=== PATIENT | female | born 1990 ===

== ENCOUNTER 2016-10-03 17:03 | Emergency (ER) | payer OTHER ==
[2016-10-03] MEDS ORDERED: Sodium Chloride 0.9% 1000 ML 1,000 ML IV STA (17:31)
[2016-10-03] MEDS ORDERED: Sodium Chloride 0.9% 1000 ML 1,000 ML ONE (17:38)
--- NOTE | 2016-10-03 17:46 | ERPHSYRPT ---
- History of Present Illness Time Seen by Provider: 10/03/16 17:31 Source: patient Exam Limitations: no limitations Patient Subjective Stated Complaint: PER EMS CALLED FOR PT VOMITING X 5 DAYS STATES SHE NOTICED BRIGHT RED BLOOD IN HER VOMIT X 2 TODAY STATES SHE IS HAVING SOME ALL OVER ABDOMINAL PAIN. STATES HAS HAD DIARRHEA BUT NONE TODAY. Triage Nursing Assessment: PT LETHARGIC WARM AND DRY. DRY MUCUS MEMBRANES NOTED. Physician History: This is a 26-year-old female who states she does not have a local physician arrives with complaint of vomiting for 5 days states she's had some bright red blood in her vomit. She has diffuse abdominal pain. She has had diarrhea several days ago none today she does have a fever. Past medical history includes HIV, inflamed liver. Past surgical history includes tonsillectomy, 1, cholecystectomy, colon biopsy Last menstrual period now. Social history positive for tobacco use Timing/Duration: day(s) (5 days) Severity: moderate Associated Symptoms: nausea, vomiting, abdominal pain, weakness, No shortness of breath, No heartburn, No diaphoresis, No cough, No chills, No chest pain, No fever, No headaches, No loss of appetite, No malaise, No rash, No syncope, No seizure Allergies/Adverse Reactions: acetaminophen [From Lortab] Allergy (Verified 10/03/16 17:07) hydrocodone Allergy (Verified 10/03/16 17:07) Penicillins Allergy (Verified 10/03/16 17:07) Home Medications: No Reportable Medications [No Reported Medications] 10/03/16 [History] Hx Tetanus, Diphtheria Vaccination/Date Given: Yes Hx Influenza Vaccination/Date Given: Yes Hx Pneumococcal Vaccination/Date Given: No Immunizations Up to Date: Yes - Review of Systems Constitutional: Fever, Weakness, No Chills, No Fatigue, No Lethargy, No Malaise , No Night Sweats, No Weight Loss Eyes: No Symptoms, No Discharge, No Eye Pain, No Eye Redness, No Itchy, No Photophobia, No Tearing, No Vision Changes, No Double Vision, No Foreign Body Sensation Ears, Nose, & Throat: No Symptoms, No Ear Pain, No Ear Discharge, No Hearing Changes, No Tinnitus, No Nose Pain, No Nose Congestion, No Nose Discharge, No Sinus Drainage, No Epistaxis, No Mouth Pain, No Mouth Swelling, No Loose Teeth, No Throat Pain, No Throat Swelling, No Hoarse, No Painful Swallowing, No Snoring , No Stridor Respiratory: No Cough, No Dyspnea Cardiac: No Chest Pain, No Edema, No Palpitations, No Syncope, No Orthopnea, No PND Abdominal/Gastrointestinal: Abdominal Pain, Nausea, Vomiting, Diarrhea, Hematemesis, No Constipation, No Hematochezia, No Melena, No Dysphagia, No Appetite Changes Genitourinary Symptoms: No Dysuria Musculoskeletal: No Back Pain, No Neck Pain Skin: No Rash Neurological: No Dizziness, No Focal Weakness, No Sensory Changes Psychological: No Symptoms Endocrine: No Symptoms All Other Systems: Reviewed and Negative - Past Medical History Other Medical History: HIV,INFLAMED LIVER - Past Surgical History Past Surgical History: Yes Other Surgical History: TONSILS, X 2 GALLBLADDER COLON BIOPSY. - Social History Smoking Status: Current every day smoker How long have you smoked: 12 years Exposure to second hand smoke: Yes Drug Use: none Patient Lives Alone: No - Female History Hx Last Menstrual Period: now - Nursing Vital Signs Nursing Vital Signs: Initial Vital Signs Temperature 101.0 F Temperature Source Oral Pulse Rate 110 Respiratory Rate 16 Blood Pressure [Right Arm] 106/71 Pain Intensity 7 - Physical Exam General Appearance: moderate distress Eye Exam: PERRL/EOMI, eyes nml inspection Ears, Nose, Throat Exam: normal ENT inspection, TMs normal, pharynx normal, moist mucous membranes Neck Exam: normal inspection, non-tender, supple, full range of motion Respiratory Exam: normal breath sounds, lungs clear, No respiratory distress Cardiovascular Exam: regular rate/rhythm, normal heart sounds, normal peripheral pulses Gastrointestinal/Abdomen Exam: soft, normal bowel sounds, No tenderness, No mass Back Exam: normal inspection, normal range of motion, No CVA tenderness, No vertebral tenderness Extremity Exam: normal inspection, normal range of motion, pelvis stable Neurologic Exam: alert, oriented x 3, cooperative, normal mood/affect, nml cerebellar function, nml station & gait, sensation nml, No motor deficits Skin Exam: normal color, warm, dry, No rash Lymphatic Exam: No adenopathy SpO2 Interpretation: normal (95%) SpO2: 95 Oxygen Delivery: Room Air Ordered Tests: Active Orders 24 hr Category Date Time Status Accucheck STAT Care 10/03/16 17:32 Active IV Insertion STAT Care 10/03/16 17:31 Active AMYLASE Stat Lab 10/03/16 17:38 Completed BLOOD CULTURE Stat Lab 10/03/16 17:55 Received CBC W DIFF Stat Lab 10/03/16 17:38 Completed CMP Stat Lab 10/03/16 17:38 Completed CULTURE,URINE Stat Lab 10/03/16 18:45 Received HCG,QUALITATIVE URINE Stat Lab 10/03/16 19:16 Completed LIPASE Stat Lab 10/03/16 17:38 Completed Lactic Acid Urgent Lab 10/03/16 17:31 Completed Manual Differential NC Stat Lab 10/03/16 17:38 Completed Occult Blood,Stool Other Stat Lab 10/03/16 19:15 Completed UA W/ MICROSCOPIC Stat Lab 10/03/16 18:45 Completed Urine Triage Profile Stat Lab 10/03/16 18:45 Completed Medication Summary Generic Name Dose Route Start Last Admin Trade Name Freq PRN Reason Stop Dose Admin Levofloxacin/Dextrose 100 mls @ 100 mls/hr 10/03/16 19:37 10/03/16 19:45 Levofloxacin 500mg/100ml D5w IV 10/03/16 20:36 100 mls/hr STAT ONE Administration Discontinued Medications Generic Name Dose Route Start Last Admin Trade Name Freq PRN Reason Stop Dose Admin Sodium Chloride 1,000 mls @ 999 mls/hr 10/03/16 17:31 10/03/16 17:40 Sodium Chloride 0.9% 1000 Ml IV 10/03/16 18:31 999 mls/hr .Q1H1M STA Administration Sodium Chloride Confirm 10/03/16 17:38 Sodium Chloride 0.9% 1000 Ml Administered 10/03/16 17:39 Dose 1,000 mls @ ud .ROUTE .STK-MED ONE Levofloxacin/Dextrose Confirm 10/03/16 19:41 Levofloxacin 500mg/100ml D5w Administered 10/03/16 19:42 Dose 100 mls @ ud IV .STK-MED ONE Lab/Rad Data: Laboratory Result Diagrams 10/03/16 17:38 10/03/16 17:38 Laboratory Results 10/03/16 10/03/16 10/03/16 Range/Units 19:16 19:15 18:45 WBC (4.0-10.5) K/mm3 RBC (4.1-5.4) M/mm3 Hgb (12.0-16.0) gm/dl Hct (35-47) % MCV (78-100) fl MCH (26-32) pg MCHC (32-36) g/dl RDW (11.5-14.0) % Plt Count (150-450) K/mm3 MPV (6-9.5) fl Segmented Neutrophils (36.0-66.0) % Lymphocytes (Manual) (24-44) % Monocytes (Manual) (0.0-12.0) % Eosinophils (Manual) (0.00-3.0) % Differential Comment Platelet Estimate (NORMAL) Anisocytosis Sodium (136-145) mEq/L Potassium (3.5-5.1) mEq/L Chloride (98-107) mEq/L Carbon Dioxide (21-32) mEq/L Anion Gap (5-15) MEQ/L BUN (9-20) mg/dL Creatinine (0.55-1.30) mg/dl Estimated GFR ML/MIN Glucose (70-110) MG/DL Lactic Acid (0.4-2.0) Calcium (8.5-10.1) mg/dL Total Bilirubin (0.2-1.0) mg/dL AST (15-37) U/L ALT (12-78) U/L Alkaline Phosphatase (46-116) U/L Serum Total Protein (6.4-8.2) gm/dL Albumin (3.4-5.0) g/dL Amylase (25-115) U/L Lipase (73-393) U/L Ur Collection Type Urine Color (YELLOW) Urine Appearance (CLEAR) Urine pH (5-6) Ur Specific Cummings (1.005-1.025) Urine Protein (Negative) Urine Glucose (UA) (NEGATIVE) mg/dL Urine Ketones (NEGATIVE) Urine Nitrite (NEGATIVE) Urine Bilirubin (NEGATIVE) Urine Urobilinogen (0-1) mg/dL Urine WBC (Auto) (NEGATIVE) Urine RBC (Auto) (0-5) Morales/ul Urine Microscopic RBC (0-2) /HPF Urine Microscopic WBC (0-5) /HPF Ur Epithelial Cells (FEW) /HPF Urine Bacteria (NEGATIVE) /HPF Urine Mucus (NEGATIVE) /HPF Urine HCG, Qual NEGATIVE (Negative) Stool Occult Blood NEGATIVE (Negative) Urine Opiates Level NEG. (NEGATIVE) Ur Methadone NEG. (NEGATIVE) Urine Barbiturates NEG. (NEGATIVE) Ur Phencyclidine (PCP) NEG. (NEGATIVE) Urine Amphetamine NEG. (NEGATIVE) U Benzodiazepine Level NEG. (NEGATIVE) Urine Cocaine NEG. (NEGATIVE) Urine Marijuana (THC) POS. (NEGATIVE) Influenza Type A Ag (NEGATIVE) Influenza Type B Ag (NEGATIVE) RSV (PCR) (Negative) Specimen Received 10/03/16 10/03/16 10/03/16 Range/Units 18:45 17:56 17:38 WBC (4.0-10.5) K/mm3 RBC (4.1-5.4) M/mm3 Hgb (12.0-16.0) gm/dl Hct (35-47) % MCV (78-100) fl MCH (26-32) pg MCHC (32-36) g/dl RDW (11.5-14.0) % Plt Count (150-450) K/mm3 MPV (6-9.5) fl Segmented Neutrophils (36.0-66.0) % Lymphocytes (Manual) (24-44) % Monocytes (Manual) (0.0-12.0) % Eosinophils (Manual) (0.00-3.0) % Differential Comment Platelet Estimate (NORMAL) Anisocytosis Sodium 133 L (136-145) mEq/L Potassium 3.0 L* (3.5-5.1) mEq/L Chloride 102 (98-107) mEq/L Carbon Dioxide 23.6 (21-32) mEq/L Anion Gap 12.5 (5-15) MEQ/L BUN 8 L (9-20) mg/dL Creatinine 0.73 (0.55-1.30) mg/dl Estimated GFR > 60 ML/MIN Glucose 79 (70-110) MG/DL Lactic Acid (0.4-2.0) Calcium 8.1 L (8.5-10.1) mg/dL Total Bilirubin 0.6 (0.2-1.0) mg/dL AST 40 H (15-37) U/L ALT 16 (12-78) U/L Alkaline Phosphatase 165 H (46-116) U/L Serum Total Protein 7.1 (6.4-8.2) gm/dL Albumin 2.5 L (3.4-5.0) g/dL Amylase 70 (25-115) U/L Lipase 140 (73-393) U/L Ur Collection Type CLEAN CATCH Urine Color YELLOW (YELLOW) Urine Appearance SLIGHTLY CLOUDY (CLEAR) Urine pH 7.0 (5-6) Ur Specific Cummings 1.015 (1.005-1.025) Urine Protein NEGATIVE (Negative) Urine Glucose (UA) NEGATIVE (NEGATIVE) mg/dL Urine Ketones NEGATIVE (NEGATIVE) Urine Nitrite POSITIVE (NEGATIVE) Urine Bilirubin NEGATIVE (NEGATIVE) Urine Urobilinogen 1 (0-1) mg/dL Urine WBC (Auto) MODERATE (NEGATIVE) Urine RBC (Auto) SMALL (0-5) Morales/ul Urine Microscopic RBC 2-5 (0-2) /HPF Urine Microscopic WBC 25-50 (0-5) /HPF Ur Epithelial Cells MODERATE (FEW) /HPF Urine Bacteria PACKED (NEGATIVE) /HPF Urine Mucus SLIGHT (NEGATIVE) /HPF Urine HCG, Qual (Negative) Stool Occult Blood (Negative) Urine Opiates Level (NEGATIVE) Ur Methadone (NEGATIVE) Urine Barbiturates (NEGATIVE) Ur Phencyclidine (PCP) (NEGATIVE) Urine Amphetamine (NEGATIVE) U Benzodiazepine Level (NEGATIVE) Urine Cocaine (NEGATIVE) Urine Marijuana (THC) (NEGATIVE) Influenza Type A Ag NEGATIVE (NEGATIVE) Influenza Type B Ag NEGATIVE (NEGATIVE) RSV (PCR) NEGATIVE (Negative) Specimen Received 10/03/16:1845 10/03/16 10/03/16 Range/Units 17:38 17:31 WBC 4.1 (4.0-10.5) K/mm3 RBC 2.60 L (4.1-5.4) M/mm3 Hgb 7.6 L (12.0-16.0) gm/dl Hct 23.2 L (35-47) % MCV 89.2 (78-100) fl MCH 29.2 (26-32) pg MCHC 32.8 (32-36) g/dl RDW 15.6 H (11.5-14.0) % Plt Count 210 (150-450) K/mm3 MPV 11.1 H (6-9.5) fl Segmented Neutrophils 85 H (36.0-66.0) % Lymphocytes (Manual) 5 L (24-44) % Monocytes (Manual) 8 (0.0-12.0) % Eosinophils (Manual) 2 (0.00-3.0) % Differential Comment ABNORMAL Platelet Estimate NORMAL (NORMAL) Anisocytosis 1+ Sodium (136-145) mEq/L Potassium (3.5-5.1) mEq/L Chloride (98-107) mEq/L Carbon Dioxide (21-32) mEq/L Anion Gap (5-15) MEQ/L BUN (9-20) mg/dL Creatinine (0.55-1.30) mg/dl Estimated GFR ML/MIN Glucose (70-110) MG/DL Lactic Acid 1.1 (0.4-2.0) Calcium (8.5-10.1) mg/dL Total Bilirubin (0.2-1.0) mg/dL AST (15-37) U/L ALT (12-78) U/L Alkaline Phosphatase (46-116) U/L Serum Total Protein (6.4-8.2) gm/dL Albumin (3.4-5.0) g/dL Amylase (25-115) U/L Lipase (73-393) U/L Ur Collection Type Urine Color (YELLOW) Urine Appearance (CLEAR) Urine pH (5-6) Ur Specific Cummings (1.005-1.025) Urine Protein (Negative) Urine Glucose (UA) (NEGATIVE) mg/dL Urine Ketones (NEGATIVE) Urine Nitrite (NEGATIVE) Urine Bilirubin (NEGATIVE) Urine Urobilinogen (0-1) mg/dL Urine WBC (Auto) (NEGATIVE) Urine RBC (Auto) (0-5) Morales/ul Urine Microscopic RBC (0-2) /HPF Urine Microscopic WBC (0-5) /HPF Ur Epithelial Cells (FEW) /HPF Urine Bacteria (NEGATIVE) /HPF Urine Mucus (NEGATIVE) /HPF Urine HCG, Qual (Negative) Stool Occult Blood (Negative) Urine Opiates Level (NEGATIVE) Ur Methadone (NEGATIVE) Urine Barbiturates (NEGATIVE) Ur Phencyclidine (PCP) (NEGATIVE) Urine Amphetamine (NEGATIVE) U Benzodiazepine Level (NEGATIVE) Urine Cocaine (NEGATIVE) Urine Marijuana (THC) (NEGATIVE) Influenza Type A Ag (NEGATIVE) Influenza Type B Ag (NEGATIVE) RSV (PCR) (Negative) Specimen Received - Progress Progress: improved Progress Note: 10/03/16 19:59 This is a 18-year-old white female with history of HIV and history of inflammation of her liver. She arrives with complaint of persistent nausea and vomiting for about 5 days she has some mild diffuse abdominal pain. She appears to be quite pale on appearance when she arrives. She is noted to have a fever of 101. Patient is noted to have a hemoglobin of 7.6, hematocrit of 23.2, white count is 4.1 hCG is negative lactate is 1.1 urinalysis is positive for 25-50 white cells per high-power field occult stool is negative chemistry is remarkable for a sodium of 133 potassium of 3 chloride 102 carbon dioxide 23.6 BUN is a creatinine 0.73 glucose is 79 influenza and RSV are both negative I've discussed the patient's case with Dr. Pyle she feels that the patient would best be served by being admitted to a facility which would have a surgeon available. Therefore I discussed the case with Jose Luis Fry who is collection supervisor for Dr. Maddox at [facility] He has excepted the patient for transfer Patient has received IV normal saline also Levaquin 500 mg IV will go ahead and place the patient on normal saline with 20 mEq of potassium chloride to run at 150 mL per hour - Departure Time of Disposition: 19:55 Departure Disposition: Transfer ([facility] for Dr Maddox) Clinical Impression: Nausea and vomiting Qualifiers: Vomiting type: unspecified Vomiting Intractability: unspecified Qualified Code( s): R11.2 - Nausea with vomiting, unspecified Hematemesis Qualifiers: Nausea presence: with nausea Qualified Code(s): K92.0 - Hematemesis; R11.0 - Nausea Anemia Qualifiers: Anemia type: unspecified type Qualified Code(s): D64.9 - Anemia, unspecified Fever Qualifiers: Fever type: unspecified Qualified Code(s): R50.9 - Fever, unspecified UTI (urinary tract infection) Qualifiers: Urinary tract infection type: site unspecified Hematuria presence: without hematuria Qualified Code(s): N39.0 - Urinary tract infection, site not specified Condition: Fair Critical Care Time: No
[2016-10-03 18:04] LABS: Mean Cell Volume 89.2 fl (78-100); Mean Corpuscular Hemoglobin 29.2 pg (26-32); Mean Platelet Volume 11.1 fl (6-9.5); Platelet Count 210 K/mm3 (150-450); Red Cell Distribution Width 15.6 % (11.5-14.0); White Blood Count 4.1 K/mm3 (4.0-10.5)
[2016-10-03 18:27] LABS: ALBUMIN 2.5 g/dL (3.4-5.0); ALKALINE PHOSPHATASE 165 U/L (46-116); ANION GAP 12.5 MEQ/L (5-15); BILIRUBIN,TOTAL 0.6 mg/dL (0.2-1.0); BLOOD UREA NITROGEN 8 mg/dL (9-20); CHLORIDE 102 mEq/L (98-107); Carbon Dioxide 23.6 mEq/L (21-32); Glucose 79 MG/DL (70-110); LIPASE 140 U/L (73-393); SGOT/AST 40 U/L (15-37); SGPT/ALT 16 U/L (12-78); Total Protein 7.1 gm/dL (6.4-8.2)
[2016-10-03 18:37] LABS: SODIUM 133 mEq/L (136-145)
[2016-10-03 19:21] LABS: Collection Type CLEAN CATCH
[2016-10-03 19:22] LABS: Bacteria PACKED /HPF (NEGATIVE); COMPLETE URINE MICROSCOPIC? YES; Epithelial Cells MODERATE /HPF (FEW); Mucus SLIGHT /HPF (NEGATIVE); WBC 25-50 /HPF (0-5)
[2016-10-03] MEDS ORDERED: Levofloxacin 500MG/100ML D5W 100 ML IV ONE ×2 (19:37→19:41)
[2016-10-03 19:43] LABS: Eosinophil 2 % (0.00-3.0); Total Cells Counted 100
[2016-10-03 19:44] LABS: ANISOCYTOSIS 1+; Platelet Estimate NORMAL (NORMAL)
[2016-10-03 19:48] VITALS: BP 106/71; PULSE 110
[2016-10-03 20:03] VITALS: O2SAT 95
[2016-10-03] MEDS ORDERED: TYLENOL 325 MG PO ONE (20:04)
[2016-10-03] MEDS ORDERED: TYLENOL 325 MG ONE (20:10)
[2016-10-03] MEDS ORDERED: Sodium Chloride 0.9% W/ 20 mEq KCl/LITER 1,000 ML IV ONE (20:10)
[2016-10-03] MEDS ORDERED: Sodium Chloride 0.9% W/ 20 mEq KCl/LITER 1,000 ML IV SCH (20:15)
== END 2016-10-03 20:43 | disposition short-term general hospital (02) ==
LOC: ED 17:03
DX: R11.2 Nausea with vomiting, unspecified (principal); K92.0 Hematemesis; D64.9 Anemia, unspecified; R50.9 Fever, unspecified; N39.0 Urinary tract infection, site not specified; R10.9 Unspecified abdominal pain; Z72.0 Tobacco use
CPT/HCPCS: 36000; 36415; 80053; 80307; 81000; 82150; 82272; 82962; 83605; 83690; 84703; 85025; 86850; 86900; 86901; 87040; 87077; 87086; 87186; 87631; 96360; 96365; 96367; 99284; 99285; J1956